=== PATIENT | male | born 1935 | race Caucasian/White ===

== ENCOUNTER 2020-01-14 19:35 | Emergency (ER) | payer MEDICARE ==
[~2020-01-14] VITALS: Ht 160 cm; Wt 59.0 kg
[2020-01-14 19:40] VITALS: BP 156/85
[2020-01-14] MEDS ORDERED: LASIX 20 MG TAB20 MG PO (19:49)
[2020-01-14] MEDS ORDERED: SYNTHROID100 MC1 PO (19:50)
[2020-01-14] MEDS ORDERED: ASA81BEC PO (19:50)
[2020-01-14] MEDS ORDERED: LIPITOR10 MG PO (19:50)
== END 2020-01-14 20:08 | disposition home or self-care (01) ==
LOC: M.ERS 19:35
DX: K43.9 Ventral hernia without obstruction or gangrene (principal); I10 Essential (primary) hypertension; Z88.0 Allergy status to penicillin

== ENCOUNTER 2020-05-05 21:30 | Emergency (ER) | payer MEDICARE ==
[~2020-05-05] VITALS: Ht 160 cm; Wt 58.5 kg
[~2020-05-05 21:30] MED LIST: ASA81BEC PO; LASIX 20 MG TAB20 MG PO; LIPITOR10 MG PO; SYNTHROID100 MC1 PO
[2020-05-05 22:09] LABS: ABSOLUTE EOSINOPHILS 0.1 thou/uL (0.0-0.7); ABSOLUTE LYMPHOCYTES 2.1 thou/uL (0.8-5.3); ABSOLUTE MONOCYTES 0.5 thou/uL (0.0-1.2); ABSOLUTE NEUTROPHILS 3.8 thou/uL (1.6-8.1); BASOPHILS 0.5 %; HEMATOCRIT 39.2 % (42.0-52.0); HEMOGLOBIN 13.8 gm/dL (14.0-18.0); LYMPHOCYTES 32.1 %; MCH 33.4 pg (26.0-34.0); MCHC 35.1 g/dL (28.0-37.0); MCV 95.2 fL (80.0-100.0); MONOCYTES 7.8 %; NUCLEATED RBCS 0 /100WBC; PLATELET COUNT* 183 thou/uL (150-400); POLYS 58.6 %; RBC 4.12 mil/uL (4.50-6.00); RDW-CV 13.5 % (10.5-14.5); WBC 6.5 thou/uL (4.0-11.0)
[2020-05-05 22:13] LABS: CALCIUM 8.6 mg/dL (8.5-10.1); CREATININE 1.5 mg/dL (0.6-1.3); POTASSIUM 4.1 mmol/L (3.5-5.1)
[2020-05-05 22:15] LABS: PROTIME 10.2 Seconds (9.20-11.50)
[2020-05-05 22:23] LABS: ALBUMIN 3.9 g/dL (3.4-5.0); MAGNESIUM 2.5 mg/dL (1.8-2.4); TOTAL BILIRUBIN 0.5 mg/dL (<0.1-1.0)
[2020-05-06 02:08] VITALS: BP 151/80
--- NOTE | 2020-05-06 12:17 | EKG ---
[place] [address] ELECTROCARDIOGRAM REPORT Name: ANNELIESE ARNETT JR Room: [facility]#: [id number] Admission: 05/05/20 Attend Phys: Discharge: 05/06/20 Date of : 31 Date of Service: 05/05/202136 Report #: [id number] THIS REPORT FOR: //name// [facility] ED Test Date: 2020-05-05 Test Time: 21:37:16 Pat Name: ANNELIESE ARNETT Department: Room: Gender: [employer]: : [id number] Requested By: Senait Mcdonough Order Number: [id number] MD: Javier Foss Measurements Intervals Adel Rate: 71 P: -48 LA: 168 QRS: -54 QRSD: 126 T: 45 QT: 406 QTc: 442 Interpretive Statements Sinus or ectopic atrial rhythm Ventricular trigeminy RBBB and LAFB No previous ECG available for comparison Electronically Signed On 05-06-2020 12:16:53 CDT by Javier Foss [email or web address] <ELECTRONICALLY SIGNED> By: Javier Foss MD, [facility] 05/06/20 1216 36 36 Javier Foss MD, [facility] /EPI
== END 2020-05-06 02:09 | disposition home or self-care (01) ==
LOC: M.ERS 21:30
PROVIDERS: Emergency Medicine
DX: R06.00 Dyspnea, unspecified (principal); I10 Essential (primary) hypertension; E03.9 Hypothyroidism, unspecified; E78.00 Pure hypercholesterolemia, unspecified; Z20.828 Contact with and (suspected) exposure to other viral communicable diseases; Z88.0 Allergy status to penicillin